=== PATIENT | female | born 1935 | race Caucasian/White ===

== ENCOUNTER 2021-12-20 19:47 | Emergency (ER) | payer OTHER, BC ==
[2021-12-20 20:42] VITALS: BP 128/79; PULSE 91; TEMP 98.7; BMI 20.5
[2021-12-20] MEDS ORDERED: HYDROmorphone HCL CARPU-JECT 1 MG/1 ML DISP.SYRIN IVPUSH ONE (22:43)
[2021-12-20] MEDS ORDERED: NITROFURANTOIN MACROCRYSTAL 50 MG CAPSULE (FP) ONE ×2 (23:06)
[2021-12-20] MEDS ORDERED: ACETAMINOPHEN 500 MG TABLET (FP) PO ONE (23:08)
[2021-12-20] MEDS ORDERED: ACETAMINOPHEN 500 MG TABLET (FP) ONE (23:10)
[2021-12-20] MEDS ORDERED: NITROFURANTOIN MACROCRYSTAL 50 MG CAPSULE (FP) PO SCH (23:15)
[2021-12-20 23:18] LABS: EPITHELIAL CELLS FEW /hpf
== END 2021-12-21 02:25 | disposition home or self-care (01) ==
LOC: FER 19:47
DX: N30.90 Cystitis, unspecified without hematuria (principal); M25.552 Pain in left hip; W19.XXXA Unspecified fall, initial encounter
CPT/HCPCS: 70450-TC; 71045-TC-FY; 72170-TC-FY; 73502-TC-RT-FY; 81003; 81015; 87086; 99285-25

== ENCOUNTER 2022-03-26 08:15 | Emergency (ER) | payer OTHER, BC ==
[2022-03-26 08:51] VITALS: BP 100/70; PULSE 87; RESP 20; TEMP 98.2; BMI 22.3
[2022-03-26] MEDS ORDERED: SULFAMETHOXAZOLE/TRIMETHOPRIM 800MG/160MG D.S. TABLET PO ONE (08:57)
[2022-03-26] MEDS ORDERED: SULFAMETHOXAZOLE/TRIMETHOPRIM 800MG/160MG D.S. TABLET ONE (09:09)
[2022-03-26 09:10] LABS: EPITHELIAL CELLS FEW /hpf
== END 2022-03-26 11:20 | disposition home or self-care (01) ==
LOC: FER 08:15
DX: S80.211A Abrasion, right knee, initial encounter (principal); S80.212A Abrasion, left knee, initial encounter; N39.0 Urinary tract infection, site not specified; W01.0XXA Fall on same level from slipping, tripping and stumbling without subsequent striking against object, initial encounter; Z79.01 Long term (current) use of anticoagulants
CPT/HCPCS: 70450-TC; 71045-TC-FY; 73562-TC-RT-FY; 81003; 81015; 87086; 87186; 93005; 99285-25

== ENCOUNTER 2022-06-12 09:50 | Observation (INO) | payer OTHER, BC ==
[2022-06-12] MEDS ORDERED: ACETAMINOPHEN 325 MG TABLET (FP) PO ONE (10:41)
[2022-06-12] MEDS ORDERED: ACETAMINOPHEN 325 MG TABLET (FP) ONE (11:42)
[2022-06-12 14:13] LABS: HEMATOCRIT 39.2 % (32.4-45.2); HEMOGLOBIN 13.1 G/dL (10.7-15.3); MCH 26.2 pg (25.7-33.7); MCHC 33.5 g/dl (32.0-36.0); MEAN CELL VOLUME 78.3 fl (80-96); MEAN PLT VOLUME 9.5 fl (7.5-11.1); PLATELET COUNT 144.1 10^3/uL (134-434); RDW 16.6 % (11.6-15.6); WHITE BLOOD COUNT 9.4 10^3/uL (4.0-10.8)
[2022-06-12 14:19] LABS: ALBUMIN 3.5 g/dl (3.4-5.0); CALCIUM 9.4 mg/dl (8.5-10); CREATININE 0.7 mg/dl (0.55-1.3); TOT PROT 6.6 g/dl (6.4-8.2)
[2022-06-12] MEDS ORDERED: NITROFURANTOIN MACROCRYSTAL 50 MG CAPSULE (FP) PO SCH (14:45)
[2022-06-12 14:59] LABS: PLATELET ESTIMATE ADEQUATE
[2022-06-12 15:19] LABS: EPITHELIAL CELLS RARE /hpf
[2022-06-12] MEDS ORDERED: ACETAMINOPHEN 1000 MG/100 ML BAG IVPB PRN (15:52)
[2022-06-12] MEDS: IBUPROFEN 600 MG TABLET (FP) PO SCH (20:00)
[2022-06-12] MEDS: AMOX TR/POT CLAV 500MG/125MG TABLETS (FP) PO SCH (20:00)
[2022-06-12 20:48] VITALS: BMI 17.9
[2022-06-13] MEDS: IBUPROFEN 600 MG TABLET (FP) PO SCH ×3 (00:01→09:28)
[2022-06-13] MEDS ORDERED: PHENAZOPYRIDINE HCL 100 MG TABLET (FP) PO ONE (02:55)
[2022-06-13] MEDS ORDERED: MELATONIN 1 MG TABLET PO ONE (02:57)
[2022-06-13 08:32] LABS: CALCIUM 8.9 mg/dl (8.5-10); CREATININE 0.8 mg/dl (0.55-1.3); MAGNESIUM 1.9 mg/dL (1.8-2.4); PHOSPHOROUS 3.2 mg/dl (2.5-4.9)
[2022-06-13] MEDS: LACTOBACILLUS ACIDOPHILUS 1 TABLET PO SCH (09:27)
[2022-06-13] MEDS: SOLIFENACIN SUCCINATE 5 MG TAB PO SCH (09:28)
[2022-06-13] MEDS: AMOX TR/POT CLAV 500MG/125MG TABLETS (FP) PO SCH (09:30)
[2022-06-13] MEDS: SENNOSIDES 8.6MG TABLET (FP) PO SCH (09:31)
[2022-06-13] MEDS: CHOLECALCIFEROL (VIT D3) 1,000 UNIT (25 MCG) TABLET PO SCH (09:32)
[2022-06-13] MEDS ORDERED: METOPROLOL TARTRATE 25 MG TABLET (FP) PO SCH (10:00)
[2022-06-13] MEDS ORDERED: DIGOXIN 0.125 MG TABLET PO SCH (10:00)
[2022-06-13] MEDS ORDERED: CEFTRIAXONE 1 GM in DEXTROSE 5%-WATER - 50 ML IVPB SCH (10:45)
[2022-06-13 10:47] LABS: BASO % 0.4 % (0-2.0); EOS % 2.2 % (0-4.5); HEMATOCRIT 37.5 % (32.4-45.2); HEMOGLOBIN 11.9 GM/dL (10.7-15.3); LYMPH % 20.1 % (8-40); MCH 24.7 pg (25.7-33.7); MCHC 31.7 g/dl (32.0-36.0); MEAN CELL VOLUME 77.9 fl (80-96); MEAN PLT VOLUME 8.7 fl (7.5-11.1); MONO % 10.4 % (3.8-10.2); NEUT % 66.9 % (42.8-82.8); PLATELET COUNT 123 10^3/uL (134-434); RBC 4.82 M/mm3 (3.60-5.2)
[2022-06-13] MEDS: MEROPENEM 1 GM in DEXTROSE 5%-WATER 100 ML IVPB SCH ×2 (12:24→22:36)
[2022-06-13] MEDS ORDERED: ASPIRIN 81 MG CHEWABLE TABLETS PO SCH (17:45)
[2022-06-13] MEDS ORDERED: ROSUVASTATIN CA 20 MG TABLET PO SCH (22:00)
[2022-06-13] MEDS: metoPROLOL SUCCINATE 25 MG TAB.SR.24H (FP) PO SCH (22:35)
[2022-06-13] MEDS ORDERED: ACETAMINOPHEN 1000 MG/100 ML BAG IVPB PRN (23:38)
[2022-06-14 03:05] VITALS: RESP 18
[2022-06-14] MEDS ORDERED: ONDANSETRON 4 MG/2 ML VIAL IVPUSH PRN (04:01)
[2022-06-14 07:01] VITALS: BP 150/85; PULSE 95; TEMP 98.3
[2022-06-14] MEDS: SOLIFENACIN SUCCINATE 5 MG TAB PO SCH (10:36)
[2022-06-14] MEDS: metoPROLOL SUCCINATE 25 MG TAB.SR.24H (FP) PO SCH (10:36)
[2022-06-14] MEDS: LACTOBACILLUS ACIDOPHILUS 1 TABLET PO SCH (10:37)
[2022-06-14] MEDS: SENNOSIDES 8.6MG TABLET (FP) PO SCH (10:37)
[2022-06-14] MEDS: CHOLECALCIFEROL (VIT D3) 1,000 UNIT (25 MCG) TABLET PO SCH (10:37)
[2022-06-14] MEDS: MEROPENEM 1 GM in DEXTROSE 5%-WATER 100 ML IVPB SCH (12:09)
[2022-06-14] MEDS ORDERED: MEROPENEM 1 GM in DEXTROSE 5%-WATER 100 ML IVPB SCH (23:30)
[2022-06-14] MEDS ORDERED: ACETAMINOPHEN 325 MG TABLET (FP) PO PRN (23:38)
== END 2022-06-14 12:05 | disposition home or self-care (01) ==
LOC: FER 09:50 → FM/S 14:59 → UNDOADMOB 14:59
PROVIDERS: ADMIT Internal Medicine
PROC: 3E033NZ Introduction of Analgesics, Hypnotics, Sedatives into Peripheral Vein, Percutaneous Approach (ICD-10-PCS; principal; 2022-06-12)
DX: S22.49XA Multiple fractures of ribs, unspecified side, initial encounter for closed fracture (principal); W18.39XA Other fall on same level, initial encounter; Y93.89 Activity, other specified; Y92.099 Unspecified place in other non-institutional residence as the place of occurrence of the external cause; I48.91 Unspecified atrial fibrillation; I13.10 Hypertensive heart and chronic kidney disease without heart failure, with stage 1 through stage 4 chronic kidney disease, or unspecified chronic kidney disease; N18.9 Chronic kidney disease, unspecified; F03.90 Unspecified dementia, unspecified severity, without behavioral disturbance, psychotic disturbance, mood disturbance, and anxiety; Z79.01 Long term (current) use of anticoagulants; N39.0 Urinary tract infection, site not specified; E78.5 Hyperlipidemia, unspecified
CPT/HCPCS: 0241U-QW; 36415; 70450-TC; 71045-TC-FY; 71101-TC-LT-FY; 80048; 80053; 80162; 81003; 81015; 82570; 83735; 83935; 84100; 84300; 84484; 85025; 85027; 93005; 93306-TC; 93880-TC; 96374; 99285-25; C9803-CS; G0378; U0003; U0005

== ENCOUNTER 2022-09-30 21:16 | Observation (INO) | payer OTHER, BC ==
[2022-09-30] MEDS ORDERED: SODIUM CHLORIDE 0.9% 500 ML INFUS.BAG IV ONE (21:54)
[2022-09-30] MEDS ORDERED: METOPROLOL TARTRATE 5 MG/5 ML VIAL IVPUSH ONE (22:00)
[2022-09-30] MEDS ORDERED: METOPROLOL TARTRATE 5 MG/5 ML VIAL ONE (22:08)
[2022-09-30 22:29] LABS: HEMATOCRIT 48.1 % (32.4-45.2); HEMOGLOBIN 15.5 G/dL (10.7-15.3); MCH 26.7 pg (25.7-33.7); MCHC 32.3 g/dl (32.0-36.0); MEAN CELL VOLUME 82.7 fl (80-96); MEAN PLT VOLUME 9.6 fl (7.5-11.1); PLATELET COUNT 123.9 10^3/uL (134-434); RBC 5.82 10^6/uL (3.60-5.2); RDW 16.5 % (11.6-15.6); WHITE BLOOD COUNT 5.2 10^3/uL (4.0-10.8)
[2022-09-30 22:35] LABS: ALBUMIN 3.7 g/dl (3.4-5.0); BILIRUBIN,TOTAL 1.2 mg/dl (0.2-1); CALCIUM 9.2 mg/dl (8.5-10); TOT PROT 7.1 g/dl (6.4-8.2)
[2022-10-01 00:39] LABS: N-TERMINAL BNP 7270.2 pg/ml (5-450)
[2022-10-01] MEDS ORDERED: FUROSEMIDE 40 MG/4 ML INJECTABLE VIAL IVPUSH ONE (01:11)
[2022-10-01] MEDS ORDERED: FUROSEMIDE 40 MG/4 ML INJECTABLE VIAL ONE (01:21)
[2022-10-01] MEDS ORDERED: SENNOSIDES 8.6MG TABLET (FP) PO PRN (03:11)
[2022-10-01] MEDS ORDERED: ACETAMINOPHEN 325 MG TABLET (FP) PO PRN (03:11)
[2022-10-01 09:55] LABS: ACTIVATED PTT 33.2 SECONDS (25.2-36.5); INR 1.56 (0.83-1.09)
[2022-10-01] MEDS: APIXABAN 2.5 MG TABLET PO SCH ×2 (10:00→21:18)
[2022-10-01] MEDS: TIOTROPIUM BROMIDE 2.5 MCG (SPIRIVA) RESPIMAT INHALER IH SCH (10:01)
[2022-10-01] MEDS: MEMANTINE HCL 5 MG TABLET (UD) PO SCH ×2 (10:01→21:18)
[2022-10-01 10:02] LABS: CALCIUM 9.2 mg/dl (8.5-10); CREATININE 0.9 mg/dl (0.55-1.3); MAGNESIUM 2.3 mg/dL (1.8-2.4); PHOSPHOROUS 3.3 mg/dl (2.5-4.9)
[2022-10-01] MEDS: CHOLECALCIFEROL (VIT D3) 1,000 UNIT (25 MCG) TABLET PO SCH (10:04)
[2022-10-01 10:07] LABS: BASO % 0.7 % (0-2.0); EOS % 2.8 % (0-4.5); HEMATOCRIT 42.8 % (32.4-45.2); HEMOGLOBIN 13.4 GM/dL (10.7-15.3); LYMPH % 15.9 % (8-40); MCHC 31.4 g/dl (32.0-36.0); MEAN CELL VOLUME 82.6 fl (80-96); MEAN PLT VOLUME 9.1 fl (7.5-11.1); MONO % 9.3 % (3.8-10.2); NEUT % 71.3 % (42.8-82.8); PLATELET COUNT 138 10^3/uL (134-434); RBC 5.18 M/mm3 (3.60-5.2); RDW 15.4 % (11.6-15.6); WHITE BLOOD COUNT 4.2 K/mm3 (4.0-10.0)
[2022-10-01] MEDS: OXYBUTYNIN CHLORIDE 5 MG TABLET PO SCH ×2 (10:20→22:48)
[2022-10-02] MEDS ORDERED: SODIUM CHLORIDE 0.9% 500 ML INFUS.BAG IV ONE (08:51)
[2022-10-02 09:23] LABS: ALBUMIN 3.2 g/dl (3.4-5.0); CALCIUM 9.1 mg/dl (8.5-10); CREATININE 0.9 mg/dl (0.55-1.3); TOT PROT 6.1 g/dl (6.4-8.2)
[2022-10-02] MEDS: OXYBUTYNIN CHLORIDE 5 MG TABLET PO SCH ×2 (09:35→21:56)
[2022-10-02] MEDS: MEMANTINE HCL 5 MG TABLET (UD) PO SCH ×2 (09:35→21:56)
[2022-10-02] MEDS: APIXABAN 2.5 MG TABLET PO SCH ×2 (09:35→21:56)
[2022-10-02] MEDS: TIOTROPIUM BROMIDE 2.5 MCG (SPIRIVA) RESPIMAT INHALER IH SCH (09:36)
[2022-10-02] MEDS: CHOLECALCIFEROL (VIT D3) 1,000 UNIT (25 MCG) TABLET PO SCH (09:36)
[2022-10-02] MEDS: metoPROLOL SUCCINATE 25 MG TAB.SR.24H (FP) PO SCH (09:36)
[2022-10-02 11:44] LABS: BASO % 1.2 % (0-2.0); EOS % 6.4 % (0-4.5); HEMATOCRIT 41.2 % (32.4-45.2); HEMOGLOBIN 12.9 GM/dL (10.7-15.3); LYMPH % 13.8 % (8-40); MCH 25.9 pg (25.7-33.7); MCHC 31.3 g/dl (32.0-36.0); MEAN CELL VOLUME 82.9 fl (80-96); MEAN PLT VOLUME 9.2 fl (7.5-11.1); MONO % 8.9 % (3.8-10.2); NEUT % 69.7 % (42.8-82.8); PLATELET COUNT 130 10^3/uL (134-434); RBC 4.97 M/mm3 (3.60-5.2); RDW 15.5 % (11.6-15.6); WHITE BLOOD COUNT 3.6 K/mm3 (4.0-10.0)
[2022-10-03 08:43] LABS: BILIRUBIN,TOTAL 1.2 mg/dl (0.2-1); CALCIUM 8.7 mg/dl (8.5-10); CREATININE 0.9 mg/dl (0.55-1.3); TOT PROT 5.8 g/dl (6.4-8.2)
[2022-10-03] MEDS: metoPROLOL SUCCINATE 25 MG TAB.SR.24H (FP) PO SCH (09:57)
[2022-10-03] MEDS: OXYBUTYNIN CHLORIDE 5 MG TABLET PO SCH ×2 (09:57→21:20)
[2022-10-03] MEDS: TIOTROPIUM BROMIDE 2.5 MCG (SPIRIVA) RESPIMAT INHALER IH SCH (09:57)
[2022-10-03] MEDS: APIXABAN 2.5 MG TABLET PO SCH ×2 (09:57→21:20)
[2022-10-03] MEDS: CHOLECALCIFEROL (VIT D3) 1,000 UNIT (25 MCG) TABLET PO SCH (09:57)
[2022-10-03] MEDS: MEMANTINE HCL 5 MG TABLET (UD) PO SCH ×2 (09:57→21:20)
[2022-10-03 10:11] LABS: EOS % 8.1 % (0-4.5); HEMATOCRIT 40.3 % (32.4-45.2); HEMOGLOBIN 12.7 GM/dL (10.7-15.3); LYMPH % 13.7 % (8-40); MCH 25.7 pg (25.7-33.7); MCHC 31.4 g/dl (32.0-36.0); MEAN CELL VOLUME 81.9 fl (80-96); MEAN PLT VOLUME 9.1 fl (7.5-11.1); NEUT % 67.2 % (42.8-82.8); PLATELET COUNT 134 10^3/uL (134-434); RBC 4.93 M/mm3 (3.60-5.2); RDW 15.2 % (11.6-15.6); WHITE BLOOD COUNT 3.7 K/mm3 (4.0-10.0)
[2022-10-03 22:20] VITALS: RESP 17
[2022-10-04 08:21] LABS: CALCIUM 8.9 mg/dl (8.5-10); CREATININE 0.9 mg/dl (0.55-1.3)
[2022-10-04] MEDS: MEMANTINE HCL 5 MG TABLET (UD) PO SCH (09:57)
[2022-10-04] MEDS: CHOLECALCIFEROL (VIT D3) 1,000 UNIT (25 MCG) TABLET PO SCH (09:57)
[2022-10-04] MEDS: OXYBUTYNIN CHLORIDE 5 MG TABLET PO SCH (09:57)
[2022-10-04] MEDS: APIXABAN 2.5 MG TABLET PO SCH (09:57)
[2022-10-04] MEDS: metoPROLOL SUCCINATE 25 MG TAB.SR.24H (FP) PO SCH (09:57)
[2022-10-04] MEDS: TIOTROPIUM BROMIDE 2.5 MCG (SPIRIVA) RESPIMAT INHALER IH SCH (09:58)
[2022-10-04] MEDS ORDERED: MEMANTINE HCL 14 MG PO SCH (10:00)
[2022-10-04 10:05] LABS: BASO % 0.8 % (0-2.0); HEMATOCRIT 43.6 % (32.4-45.2); HEMOGLOBIN 13.7 GM/dL (10.7-15.3); LYMPH % 16.4 % (8-40); MCH 26.1 pg (25.7-33.7); MCHC 31.5 g/dl (32.0-36.0); MEAN CELL VOLUME 82.7 fl (80-96); MEAN PLT VOLUME 8.7 fl (7.5-11.1); MONO % 8.6 % (3.8-10.2); NEUT % 70.2 % (42.8-82.8); PLATELET COUNT 146 10^3/uL (134-434); RBC 5.27 M/mm3 (3.60-5.2); RDW 15.4 % (11.6-15.6); WHITE BLOOD COUNT 4.3 K/mm3 (4.0-10.0)
[2022-10-04] MEDS ORDERED: guaiFENesin/D-METHORPHAN HB 10 ML UNIT-DOSE CUPS PO PRN (12:19)
[2022-10-04 14:30] VITALS: BP 118/65; PULSE 117; TEMP 98.2
[2022-10-04 21:17] VITALS: BMI 16.1
== END 2022-10-04 15:17 ==
LOC: FER 21:16 → FM/S 23:30 → INTOOBSV 10-01 01:42 → FM/S 10-01 01:42 → UNDOADMOB 10-01 01:42
PROVIDERS: ADMIT Internal Medicine; ATTEND Internal Medicine
PROC: 3E033GC Introduction of Other Therapeutic Substance into Peripheral Vein, Percutaneous Approach (ICD-10-PCS; principal; 2022-09-30)
PROC: 3E0337Z Introduction of Electrolytic and Water Balance Substance into Peripheral Vein, Percutaneous Approach (ICD-10-PCS; 2022-09-30)
PROC: 3E0F7SF Introduction of Other Gas into Respiratory Tract, Via Natural or Artificial Opening (ICD-10-PCS; 2022-09-30)
DX: I48.91 Unspecified atrial fibrillation (principal); F03.90 Unspecified dementia, unspecified severity, without behavioral disturbance, psychotic disturbance, mood disturbance, and anxiety; J44.9 Chronic obstructive pulmonary disease, unspecified; M19.90 Unspecified osteoarthritis, unspecified site; I35.0 Nonrheumatic aortic (valve) stenosis; I12.9 Hypertensive chronic kidney disease with stage 1 through stage 4 chronic kidney disease, or unspecified chronic kidney disease; N18.9 Chronic kidney disease, unspecified; I73.9 Peripheral vascular disease, unspecified; N39.0 Urinary tract infection, site not specified; E31.9 Polyglandular dysfunction, unspecified; R79.89 Other specified abnormal findings of blood chemistry; D64.9 Anemia, unspecified; F32.A Depression, unspecified
CPT/HCPCS: 36415; 70450-TC; 71045-TC-FY; 80048; 80053; 80162; 82550; 83735; 83880; 84100; 84439; 84443; 84484; 85025; 85027; 85610; 85730; 93005; 93306-TC; 94640; 96374; 96375; 97116-GP; 97162-GP; 99285-25; C9803-CS; G0378; U0003; U0005